=== PATIENT | female | born 1945 | race Caucasian/White ===

== ENCOUNTER 2023-09-03 14:02 | Outpatient (RCR) | payer OTHER, SELFPAY | END 2023-09-03 23:59 | disposition home or self-care (01) | LOC: RPT 14:02 | PROVIDERS: ATTENDING PHYSICIAN Family Medicine | DX: H81.13 Benign paroxysmal vertigo, bilateral (principal); R26.81 Unsteadiness on feet; Z73.6 Limitation of activities due to disability; R26.2 Difficulty in walking, not elsewhere classified; R26.89 Other abnormalities of gait and mobility; Z87.820 Personal history of traumatic brain injury | CPT/HCPCS: 97112; 97162 ==

== ENCOUNTER 2023-10-03 09:49 | Outpatient (RCR) | payer OTHER, SELFPAY | END 2023-10-03 23:59 | disposition home or self-care (01) | LOC: RPT 09:49 | PROVIDERS: ATTENDING PHYSICIAN Family Medicine | DX: S06.9X1D Unspecified intracranial injury with loss of consciousness of 30 minutes or less, subsequent encounter (principal); R26.81 Unsteadiness on feet; R26.89 Other abnormalities of gait and mobility; Z73.6 Limitation of activities due to disability; R47.02 Dysphasia; R41.841 Cognitive communication deficit | CPT/HCPCS: 92507; 92523; 97010; 97110; 97112; 97140; 97167; 97530 ==

== ENCOUNTER 2023-10-31 15:02 | Outpatient (RCR) | payer OTHER, SELFPAY | END 2023-10-31 23:59 | disposition home or self-care (01) | LOC: RPT 15:02 | PROVIDERS: ATTENDING PHYSICIAN Family Medicine | DX: S06.9X1D Unspecified intracranial injury with loss of consciousness of 30 minutes or less, subsequent encounter (principal); R26.81 Unsteadiness on feet; Z73.6 Limitation of activities due to disability; R26.2 Difficulty in walking, not elsewhere classified; H81.13 Benign paroxysmal vertigo, bilateral | CPT/HCPCS: 92507; 97110; 97112; 97140; 97530; 97535 ==

== ENCOUNTER 2023-12-02 10:59 | Outpatient (RCR) | payer OTHER, SELFPAY | END 2023-12-02 23:59 | disposition home or self-care (01) | LOC: RPT 10:59 | PROVIDERS: ATTENDING PHYSICIAN Family Medicine | DX: S06.9X1D Unspecified intracranial injury with loss of consciousness of 30 minutes or less, subsequent encounter (principal); R47.02 Dysphasia; R41.841 Cognitive communication deficit; G31.83 Neurocognitive disorder with Lewy bodies; F02.80 Dementia in other diseases classified elsewhere, unspecified severity, without behavioral disturbance, psychotic disturbance, mood disturbance, and anxiety | CPT/HCPCS: 92507; 97110; 97112; 97140; 97530 ==

== ENCOUNTER 2023-12-05 22:10 | Observation (INO) | payer OTHER, SELFPAY ==
[2023-12-05] VITALS (7 sets, daily range): BP systolic 125–157; BP diastolic 58–137
[2023-12-05 12:33] LABS: Urine Albumin Negative (Neg - Trace); Urine Bilirubin Negative (Negative); Urine Character Clear (Clear); Urine Color Yellow; Urine Glucose Negative (Negative); Urine Ketone Negative (Negative); Urine Leukocyte Negative (Negative); Urine Nitrite Negative (Negative); Urine Occult Blood Negative (Negative); Urine Urobilinogen Negative (Neg - 1+)
[2023-12-05] MEDS: NSS 1000 IV ×2 (13:35→20:49)
[2023-12-05 13:58] LABS: % Basophils 1.2 % (0-2); % Immature Granulocytes 0.2 % (0-0.5); % Lymphocytes 40.4 % (20.5-51.1); % Monocytes 7.8 % (1.7-9.3); % Neutrophils 49.4 % (42.2-75.2); Absolute Basophils 0.1 10^3/uL (0-0.2); Absolute Eosinophils 0.1 10^3/uL (0-0.7); Absolute Monocytes 0.4 10^3/uL (0.1-0.6); Absolute Neutrophils 2.4 10^3/uL (1.4-6.5); Hematocrit 40.9 % (37.0-47.0); Hemoglobin 14.1 g/dL (12.0-16.0); Mean Corp Hgb Conc. 34.5 g/dL (33.0-37.0); Mean Corpuscular Hgb 31.7 pg (27.0-31.0); Mean Corpuscular Volume 91.9 fL (81.0-99.0); Mean Platelet Volume 9.3 fL (7.4-10.4); Nucleated Red Blood Cells % 0 %; Platelet Count 224 10^3/uL (130-400); Red Blood Cell Count 4.45 10^6/uL (4.20-5.40); Red Cell Dist. Width 12.4 % (11.5-14.5); White Blood Cell Count 4.9 10^3/uL (4.8-10.8)
--- NOTE | 2023-12-05 14:06 | ED.GENMED ---
History of Present Illness
General
Chief Complaint: Abdominal Pain
Source: patient
Exam Limitations: none
Time Seen by Provider: 12/05/23 12:39
Nursing documentation reviewed up to this point in time: agreed with
Travel History
Have you had any contact with someone who has COVID-19?: No
Do you have any symptoms of coronavirus? Fever > 100 degrees, chills, cough, shortness of breath, sore throat, loss of taste or smell, muscle aches, or headache?: No
History of Present Illness
History of Present Illness:
Patient presents to ED secondary to persistent abdominal pain over the past 3 days, along with intermittent vomiting episodes. Denies diarrhea. Denies trauma. Denies fever or chills. Denies sick contact. Denies recent travel. Abdominal pain
described as crampy, lower abdomen, without any alleviating or exacerbating factors. Denies recent change in medications or diet
Past History
Past History
ED Past Medical History: GERD and Hypothyroidism
ED Past Surgical History: Gynecological and Orthopedic
Social History
Tobacco: Non-smoker
Alcohol: None
Drug: None
Living: with family
Review of Systems
Review of Systems
Allergies reviewed?: Yes
All Other Systems: ROS reviewed and negative except as documented in HPI and ROS
Constitutional: Reports no symptoms; Denies fever
Respiratory: Reports no symptoms
Cardiac: Reports no symptoms
ABD/GI: Reports abdominal pain, nausea and vomiting; Denies diarrhea
Musculoskeletal: Reports no symptoms
Skin: Reports no symptoms
Neurological: Reports no symptoms
Phy Exam
Physical Exam
Physical Exam:
Physical Exam
General: mild distress, not acutely ill. afebrile
Head: nc/at. eomi
Neck: supple. normal range of motion.
Heart: s1/s2 regular rate and rhythm, no murmur.
Lungs: no acute respiratory distress. clear bilaterally
Abdomen: normal bowel sounds. mild lower abdominal tenderness, L>R. no distention
Neuro: alert and oriented. no focal neurological deficits
Skin: no rash
Psychiatric: well kept. interactive and cooperative
Extremities: no edema. no calf tenderness.
Course
Orders/Labs/Results
Orders:
Orders
12/05/23 12:18
Urinalysis Reflex To Culture Urgent
Date Specimen was Collected: 12/05/23
Time Specimen was Collected: 12:15
12/05/23 12:56
0.9% Sodium Chloride 1000 ml [Nss] 1,000 ml IV BOLUS
12/05/23 12:58
CT Abd/pelvis W Iv Cont Urgent
Comment:
Reason For Exam: LLQ pain
CT Head W/o Iv Contrast Urgent
Comment:
Reason For Exam: slurred speech
12/05/23 13:31
Complete Blood Count/With Diff Urgent
Comprehensive Metabolic Panel Urgent
Magnesium Urgent
12/05/23 Dinner
NPO
Allow oral meds: Yes
Allow clear liquids: No
NPO with Ice Chips: No
12/05/23 20:15
0.9% Sodium Chloride 1000 ml [Nss] 1,000 ml IV 100 mls/hr
12/05/23 21:26
Lorazepam [Ativan] 0.5 mg IV NOW STA
12/05/23 21:55
Admit/Transfer Patient As Directed
Co-Sign Provider:
Level of Care: Observation services
Assign to:: Medical/Surgical
Physician / Group: souleymane burton
Diagnosis: consitpation, known gastric mass, urine retention
Code Status As Directed
Resuscitation Status: Do not resuscitate
Reached after discussion with pt or family/Healthcare POA: Yes
Based on pt advanced directive or healthcare POA form: Yes
Decision communicated with: Per daughter Belkis at bedside
Bisacodyl [Dulcolax] 10 mg RECTAL NOW STA
Bladder Scan As Directed
Follow Bladder Retention/Intermittent Cath Algorithm?: Yes
PRN if no void in __ hours: 6
Frequency: Per Retention Algorithm
If Bladder Scan Result >: 400
then:: Straight cath
Straight Cath As Directed
Frequency: Per Retention Algorithm
Additional Instructions: straight cath as needed per acute urinary retention algorithm for 24 hrs
Additional Instructions: for bladder scan greater than 400 mL
12/05/23 21:56
DNR Bracelet Application ONCE
12/05/23 22:10
GASTROINTESTINAL CONSULT Routine
Consulting Provider: Kyle Zelaya
Was physician already notified: Yes
Reason for consult: gastric antral mass
12/05/23 23:32
0.9% Sodium Chloride 1000 ml [Nss] 1,000 ml IV 80 mls/hr
Acetaminophen [Tylenol] 650 mg PO Q4HPRN PRN
12/05/23 23:32
Activity As Directed
Activity Level: With Assistance
Comment: Uses walker at baseline
Intake/ Output As Directed
Frequency: Per unit guidelines
Pneumatic Compression Sleeves As Directed
Type: Knee high
Vital Signs As Directed
Frequency: Per unit guidelines
Ot Eval And Treat Routine
Pt Eval And Treat Routine
Activity Level: As Tolerated
DX Deep Vein Thrombosis Video Routine
12/06/23 06:25
Basic Metabolic Panel IN AM
Complete Blood Count/With Diff IN AM
12/06/23 08:00
Bupropion(24Hr)Extended Releas [WELLBUTRIN XL (24 hour extended release)] 300 mg PO DAILY
Hydrochlorothiazide [Oretic] 12.5 mg PO DAILY
Rivastigmine [Exelon Patch] 9.5 mg TRANSDERM DAILY
methylphenidate HCl 18 mg PO DAILY
tafluprost (PF) 1 drop BOTH EYES DAILY
Abnormal Lab Results
12/05/23
13:31
MCH 31.7 H pg
(27.0-31.0)
Sodium 134 L mmol/L
(135-145)
Carbon Dioxide 32 H mmol/L
(22-30)
Glucose 100 H mg/dl
(70-99)
12/05/23 13:31
12/05/23 13:31
Vital Signs
Initial and Last Documented VS:
Initial Vital Signs
Temp Pulse Resp BP Pulse Ox
97.7 F 64 20 148/73 100
12/05/23 10:38 12/05/23 10:38 12/05/23 10:38 12/05/23 10:38 12/05/23 10:38
Last Documented Vital Signs
Temp Pulse Resp BP Pulse Ox
97.7 F 61 16 134/99 100
12/05/23 10:38 12/06/23 09:30 12/06/23 09:30 12/06/23 09:30 12/06/23 09:30
MDM/Problems Addressed
MDM/Problems Addressed:
CT report reviewed and discussed with Dr. Haddad, surgery. Recommends admission to hospital service for further evaluation eval and treatment, including GI consultation for endoscopy.
*Critical Care Note
Total Time (30-74mins, 75-104mins- exclusive of procedures): Not Applicable
ED Attending Note
-
Portions of this chart may have been created with voice recognition software.� Occasional wrong word or��sound alike� substitutions may have occurred due to the inherent limitations of voice recognition software.
Discharge Plan
Departure
Patient Disposition: Admit
Date of Disposition: 12/05/23
Time of Disposition: 20:06
Admit to: Med/Surg
Presentation/result/management discussed w/ accepting MD/DO: Hospitalist
Discharge Problem:
Abdominal pain, Abnormal CT of the abdomen
Interventions
Interventions:
*Risk Screen - Suicide Last Done: 12/06/23 09:47
*General Assessment Last Done: 12/05/23 12:23
*Neglect/Abuse Screening Last Done: 12/05/23 12:29
*ED COVID-19 Vaccine History Last Done: 12/05/23 10:38
*Nursing Disposition Last Done: 12/06/23 09:47
MY-Awezna-Qiclsifieo Assessment Last Done: 12/05/23 13:35
Discharge Date and Time
Discharge Date/Time: 12/06/23 09:47
[2023-12-05 14:11] LABS: ALT (SGPT) 20 U/L (0-35); AST (SGOT) 26 U/L (14-36); Albumin 4.4 g/dl (3.5-5.0); Alkaline Phosphatase 60 U/L (38-126); Blood Urea Nitrogen 10 mg/dl (7-17); Calcium 9.5 mg/dl (8.4-10.2); Carbon Dioxide 32 mmol/L (22-30); Chloride 99 mmol/L (98-107); Glucose 100 mg/dl (70-99); Magnesium 2.2 mg/dl (1.6-2.3); Potassium 3.5 mmol/L (3.5-5.1); Sodium 134 mmol/L (135-145); Total Bilirubin 0.6 mg/dl (0.2-1.3); Total Protein 6.8 g/dl (6.3-8.2); eGFR > 60.00
--- NOTE | 2023-12-05 21:10 | HPS.HSE ---
Addendum entered and electronically signed by Jose Mauricio DO 12/05/23 22:37:
Patient seen and examined independently. Agree with findings and plan as set forth by FERNANDO Garcia.
Patient is an 78y F with PMH significant for Lewy Body Dementia, hypertension and hypothyroidism who presents to ED complaining of abdominal pain with intermittent N/V. Symptoms have been present for the past 3 days - though daughter at the
bedside notes that this has been a more chronic / intermittent issue. Patient has had issues with constipation and urinary retention as well.
CT was done in the ED and ED staff recommended admission and GI evaluation.
Ass:
Abdominal Pain, N/V
Abnormal Abdominal CT (stable)
Chronic Constipation
Urinary Retention
Lewy Body Dementia with Behavioral Disturbance
TBI
Chronic Ambulatory Dysfunction
Hypothyroidism
Plan:
Observe overnight for further evaluation and treatment.
Reviewed prior CT imaging and noted abnormality in the stomach has been present as far back as June 2007 by report.
It is somewhat larger at present, but relative stability and presence of calcifications would suggest benign process over that time frame.
? related to her intermittent abdominal discomfort and N/V.
Supportive care.
GI eval in AM - ? EGD though daughter is reasonably hesitant about invasive procedures in this patient.
Bowel regimen and follow for effects.
Bladder scan protocol and catheter placement if needed.
Continue usual outpatient med regimen re: dementia / agitation.
Original Note:
Family Physician
-
Family Physician: Shobha Reyna
Chief Complaint
-
Abdominal pain, constipation, nausea
History of Present Illness
78-year-old female complaining of abdominal pain over the past 3 days with intermittent vomiting episodes. Her daughter states last bowel movement was approximately a few days ago. She normally takes prune juice but was not taking it. She also
reports for the last 2 weeks her balance has been worse than normal. She works with home PT after her fall in July resulting in brain hemorrhage, skull fracture, orbital fracture and her Lewy body dementia. She denies fever, chills, diarrhea,
antibiotics, recent travel, sick contacts, recent changes in medications or diet. She is past medical history of HTN, GERD, hypothyroidism, benign paroxysmal vertigo, dementia, left-sided breast cancer, meningioma, TBI July 2023 [facility] comminuted fracture right frontal bone right temporal bone, right frontal subdural hematoma that has resolved, scalp hematoma, chronic cystitis, renal calculi, arthritis unclear type, sleep apnea.
Medical History
Past Medical History
Past Medical History: Reports Other
Additional Past Medical History:
HTN
GERD
hypothyroidism
benign paroxysmal vertigo
dementia Lewy body dementia diagnosis 2022/ chronic agitation
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
Brain meningioma
TBI July 2023 [facility] comminuted fracture right frontal bone right temporal bone, right frontal subdural hematoma that has resolved, scalp hematoma
chronic cystitis/chronic urinary retention since July 2023,
renal calculi
arthritis unclear type
sleep apnea with implanted inspire device.
Chronic ambulatory dysfunction uses walker at baseline
Past Surgical History: Reports Other
Additional Past Surgical History:
section x 2
Tubal ligation
Appendectomy
Bilateral wrist surgery
Left-sided breast cancer surgery tubular ca removal
Inspire sleep apnea implant
Social History
Tobacco: Non-smoker
Alcohol: None
Drug: None
Personal: Single
Living: With Family (Daughter Belkis)
Employment: Retired
Family History
Family History: Other (Sister ovarian cancer, mother and father COPD/CHF in her 90s)
Allergies / Home Medications
Allergies reflects when Allergies were last updated in [facility].
Home Medications with original date entered in [facility]
Allergy/Medication List:
Allergies
Allergy/AdvReac Type Severity Reaction Status Date / Time
Penicillins Allergy Hives Verified 12/05/23 10:39
prednisone Allergy Hives Verified 12/05/23 10:39
Sulfa (Sulfonamide Allergy Hives Verified 12/05/23 10:39
Antibiotics)
Home Medications
bupropion HCl 300 mg 24 hr tablet, extended release (Wellbutrin XL) 300 mg PO DAILY 12/05/23
hydrochlorothiazide 12.5 mg tablet 12.5 mg PO DAILY 12/05/23
methylphenidate HCl 18 mg tablet,extended release 24 hr 18 mg PO DAILY 12/05/23
rivastigmine 9.5 mg/24 hour transdermal patch 9.5 mg transdermal DAILY 12/05/23
tafluprost (PF) 0.0015 % eye drops in a dropperette 1 drp BOTH EYES DAILY 12/05/23
Review of Systems
-
History Source: Patient and Family (Daughter Belkis at bedside)
A 12 point ROS was completed and negative except as noted: Yes
Constitutional: Denies Fever, Fatigue or Chills
EENT: Denies Sore Throat or Runny Nose
Respiratory: Denies Cough or Trouble Breathing
Cardiac: Denies Chest Pain, Diaphoresis or Palpitations
Abdomen/GI: Reports Abdominal Pain, Nausea, Vomiting and Constipated; Denies Diarrhea, Bloody Stools or Black Stools
: Reports Difficulty Voiding (Chronic); Denies Dysuria, Frequency, Flank Pain or Incontinence
Musculoskeletal: Denies Joint Pain or Edema
Skin: Denies Itching or Rash
Neurological: Reports Headache (Chronic); Denies Dizzy
Endocrine: Reports No Symptoms
Hematologic/Lymphatic: Reports No Symptoms
Psych: Reports Calm
Physical Exam
Vital Signs
Vital Signs
Temp Pulse Resp BP Pulse Ox
97.7 F 58 20 157/137 95
12/05/23 10:38 12/05/23 14:24 12/05/23 10:38 12/05/23 19:00 12/05/23 19:15
Physical Exam
HEENT: Other (Agitated history of Lewy body dementia currently oriented to name and some of history but not daughter Belkis at bedside)
Respiratory: Clear; No Wheezes or Rales
Cardiac: S1/S2 and Regular Rhythm; No Murmur, Rub, Gallop or Peripheral Edema
Breast: Deferred by me
GI: Soft, Non Distended, Normal Bowel Sounds, Tender (Slight generalized, and suprapubic) and No Hepatosplenomegaly
Rectal: Deferred by Provider
Genito-urinary: Deferred by me
Musculoskeletal: No Clubbing, No Cyanosis and No Edema
Skin: Warm and Dry; No Rash
Neuro: Awake, Alert and Oriented (To name and some of history but not daughter, place, year)
Psych: Agitated
Laboratory Results
-
12/05/23 13:31
12/05/23 13:31
Laboratory Results
Total Bilirubin 0.6 mg/dl (0.2-1.3) 12/05/23 13:31
AST 26 U/L (14-36) 12/05/23 13:31
ALT 20 U/L (0-35) 12/05/23 13:31
Alkaline Phosphatase 60 U/L (38-126) 12/05/23 13:31
Data Reviewed
-
CT Scan: Report Reviewed by me
Lab Data: Labs Reviewed by me
Impression/Plan
-
Impression/plan:
observation MedSurg
#Abdominal pain with possible luminal mass in gastrum abd pain likely 2/2 to constipation
#Mass was present on prior CT since 2019 in retrospect was present in 2007 but is larger
-Case was discussed with Dr. Haddad and deferred to GI
-Consult GI for possible Endo
-n.p.o. except meds
-IV NSS
-IV Zofran prn
CT abdomen pelvis with IV contrast:
1. 3.9 x 2.9 cm low-attenuation mass superimposed on the gastric body there is a metallic density focus
2.Minor sigmoid diverticulosis without diverticulitis
3. Constipation with mild to moderate colonic fecal burden
4. Distended urinary bladder consider Majano cath placement if unable to void
5. Central uterine mass measuring 5.6 cm consistent with fibroid
CT head: No acute intracranial abnormality
#Constipation with mild to moderate colonic fecal burden/history of constipation
-Daughter reports normally gets her prune juice
-Dulcolax suppository this evening
-Monitor and record bowel movements
#Distended urinary bladder on CT/history urinary retention since TBI July 2023
#Chronic cystitis
#Renal calculi
-Bladder scan with protocol
-UA negative
#Sleep apnea with implanted inspire device implanted
#GERD
#Diverticulosis/diverticulitis Hx
#HTN�benign
153/137 patient currently agitated given IV Ativan in ER we will continue to monitor
-Continue HCTZ 0.5 mg daily
#Dementia Lewy body with sundowning/agitation
Continue rivastigmine, methylphenidate, Wellbutrin daughter reports all meds must be given at 8 AM
#Hx of known meningioma
#TBI after fall 2023 with orbital and skull fracture treated at [facility] July 20[address] scan August 2023 here at [facility] comminuted fracture right frontal bone right temporal bone, right frontal subdural hematoma that has resolved, scalp hematoma
#Chronic headaches with vertigo sensation
-Tylenol as needed
#Chronic ambulatory dysfunction
Has home PT
#Hypothyroidism hx
-No current meds
Check TSH with free T4 reflex
#Arthritis unclear type
#Left-sided breast tubular cancer with removal of mass approximate 15 years ago
DVT prophylaxis
SCDs
DNR per daughter Belkis at bedside
[2023-12-05] MEDS: ATIVAN 0.5 MG IV (21:28)
[2023-12-05] MEDS: DULCOLAX 10 MG RECTAL (22:45)
[2023-12-06] VITALS: BP 145/66
[2023-12-06 01:00] VITALS: BP 141/78
[2023-12-06] MEDS: NSS 1000 IV (01:58)
[2023-12-06 03:00] VITALS: BP 133/74
[2023-12-06 06:42] LABS: % Basophils 1.6 % (0-2); % Eosinophils 1.6 % (0-6); % Immature Granulocytes 0.3 % (0-0.5); % Lymphocytes 36.4 % (20.5-51.1); % Monocytes 9.2 % (1.7-9.3); % Neutrophils 50.9 % (42.2-75.2); Absolute Basophils 0.1 10^3/uL (0-0.2); Absolute Eosinophils 0.1 10^3/uL (0-0.7); Absolute Lymphocytes 1.3 10^3/uL (1.2-3.4); Absolute Monocytes 0.3 10^3/uL (0.1-0.6); Absolute Neutrophils 1.9 10^3/uL (1.4-6.5); Hematocrit 37.4 % (37.0-47.0); Hemoglobin 12.9 g/dL (12.0-16.0); Mean Corp Hgb Conc. 34.5 g/dL (33.0-37.0); Mean Corpuscular Hgb 31.6 pg (27.0-31.0); Mean Corpuscular Volume 91.7 fL (81.0-99.0); Mean Platelet Volume 9.2 fL (7.4-10.4); Nucleated Red Blood Cells % 0 %; Platelet Count 189 10^3/uL (130-400); Red Blood Cell Count 4.08 10^6/uL (4.20-5.40); Red Cell Dist. Width 12.5 % (11.5-14.5); White Blood Cell Count 3.7 10^3/uL (4.8-10.8)
[2023-12-06 07:14] LABS: Blood Urea Nitrogen 8 mg/dl (7-17); Calcium 8.8 mg/dl (8.4-10.2); Carbon Dioxide 27 mmol/L (22-30); Chloride 104 mmol/L (98-107); Estimated Creatinine Clearance 62 ml/min; Glucose 91 mg/dl (70-99); Potassium 3.6 mmol/L (3.5-5.1); Sodium 137 mmol/L (135-145); eGFR > 60.00
[2023-12-06] MEDS: EXELON PATCH 9.5 MG TRANSDERM (08:42)
[2023-12-06] MEDS: ORETIC 12.5 MG PO (08:42)
[2023-12-06] MEDS: WELLBUTRIN XL (24 hour extended release) 300 MG PO (08:43)
--- NOTE | 2023-12-06 09:13 | CM ---
CM was updated that patient's daughter is requesting discharge. CM met with daughter to provide with OBS letter. Patient's daughter was upset with observation status. CM explained observation status in detail.CM stated that daughter can call Patient
Financial Services with further questions or concerns.
Daughter stated that she is refusing to sign observation letter. CM provided copy for patient's daughter which she did accept.
[2023-12-06 09:30] VITALS: BP 134/99
--- NOTE | 2023-12-06 09:43 | CON.GS ---
Addendum entered and electronically signed by Esdras Haddad MD 12/06/23 10:08:
I saw and examined the patient independently.
The Transfer Station Attendant's note was reviewed and I agree with the note, assessment and plan except where noted below.
Comment: This is an 78-year-old female with an Lewy body dementia, TBI, breast cancer and known gastric mass that has never previously been biopsied who presents with nausea and what sounds like nonbloody nonbilious emesis found to have a gastric
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 Had a lengthy discussion with both patient and her daughter. They are unclear in terms of how aggressive
they would like to be in terms of treating this given her other medical comorbidities.
No acute general surgery intervention warranted. No surgical admission warranted either.
If they do wish to pursue treatment here she would need an EGD and EUS +/-FNA biopsy which can be done as an outpatient.
She can follow up with me as an outpatient. Given its location on the stomach and pending final pathology would likely be a candidate for a laparoscopic wedge gastrectomy.
In the meantime would focus on a mostly liquid diet and small frequent meals instead of larger meals given that she has an intraluminal partial obstruction.
All questions answered.
Original Note:
Medical History
-
Chief Complaint: weakness
History of Present Illness:
This is an 78 yo female with a history of Lewey body dementia, TBI, and breast ca presenting through the ED with ongoing weakness and one episode of vomiting last week after a large meal. She is seen today in evaluation with her daughter. She denies
active nausea or recurrent issues with vomiting. She denies abdominal pain. She does struggle with constipation chronically. CT imaging with finding of mass within the gastric body which has slowly increased in size since scans dating back to 2006.
Her daughter notes that remotely, she has followed with gastroenterology with prior EGD but it was many years ago.
Past Medical History
Past Medical History: Cancer (breast), GERD, HTN, Hypothyroidism and Other (Sleep apnea with inspire implant, TBI July 2023 [facility] comminuted fracture right frontal bone right temporal bone, right frontal subdural hematoma, Brain
menigioma, Vertigo)
Past Surgical History: Appendectomy, (x2), Gynecological (tubal ligation), Orthopedic (BL wrist) and Other (Left breast surgery)
Social History
Tobacco: Non-Smoker
Alcohol: None
Living: With Family
Family History
Family History: Reviewed & Not Pertinent
Allergies / Home Medications
Allergy/AdvReac Type Severity Reaction Status Date / Time
Penicillins Allergy Hives Verified 12/05/23 10:39
prednisone Allergy Hives Verified 12/05/23 10:39
Sulfa (Sulfonamide Allergy Hives Verified 12/05/23 10:39
Antibiotics)
�Medication �Instructions �Recorded �Confirmed �Type
bupropion HCl 300 mg 24 hr tablet, 300 mg PO DAILY 12/05/23 12/05/23 History
extended release (Wellbutrin XL)
hydrochlorothiazide 12.5 mg tablet 12.5 mg PO DAILY 12/05/23 12/05/23 History
methylphenidate HCl 18 mg 18 mg PO DAILY 12/05/23 12/05/23 History
tablet,extended release 24 hr
rivastigmine 9.5 mg/24 hour 9.5 mg transdermal DAILY 12/05/23 12/05/23 History
transdermal patch
tafluprost (PF) 0.0015 % eye drops 1 drp BOTH EYES DAILY 12/05/23 12/05/23 History
in a dropperette
Review of Systems
-
Unable to obtain full review of systems at this time due to: Dementia
History Source: Patient and Family
All other systems: Negative unless noted
A 10 point review of systems was completed, and was negative except as per HPI.
Physical Exam
Vital Signs
Temp Pulse Resp BP Pulse Ox
97.7 F 58 20 133/74 94
12/05/23 10:38 12/05/23 14:24 12/05/23 10:38 12/06/23 03:00 12/05/23 20:43
12/05/23 12/06/23 12/07/23
06:59 06:59 06:59
Actual Weight 59.5 kg
Lab Results
12/06/23 06:25
12/06/23 06:25
WBC 3.7 10^3/uL (4.8-10.8) L 12/06/23 06:25
Hgb 12.9 g/dL (12.0-16.0) 12/06/23 06:25
Hct 37.4 % (37.0-47.0) 12/06/23 06:25
Plt Count 189 10^3/uL (130-400) 12/06/23 06:25
Abs Immat Gran (auto) 0.0 10^3/uL (0-0.05) 12/06/23 06:25
Neutrophils % 50.9 % (42.2-75.2) 12/06/23 06:25
Physical Exam
General: Well Developed and No Apparent Distress
HEENT: Moist Mucous Membranes
Respiratory: Non Labored Respirations
GI: Soft, Non Tender and Non Distended
Skin: Warm and Dry
Neuro: Awake, Alert and AO x 3
Psych: Calm
Data Reviewed
-
CT Scan: Image Personally Visualized and interpreted, Report Reviewed by me, Discussed with Physician, Discussed with Nurse, Discussed with Patient and Discussed with Family
Labs: Labs Reviewed by me, Discussed with Physician, Discussed with Nurse, Discussed with Patient and Discussed with Family
Old Records: Reviewed
Assessment / Plan
-
78 yo female with h/o Lewey body dementia, TBI in 07/2023 presenting with left sided weakness and one episode of vomiting a week ago. She currently denies GI complaints. CT imaging with finding of nonobstructing mass within the gastric body which
has slowly increased in size since scans dating back to 2006. No recent EGD's. Given her neurological problems and difficulty with anesthesia, family is reasonably unsure how much work up they would like to pursue at this time. No active n/v.
Tolerating PO intake for the most part.
--discussed outpatient follow up with GI for EGD/EUS if patient family decide to pursue further work up
--pending findings, can follow with surgery for partial gastrectomy if warranted in the future
--No acute surgical intervention warranted
Surgery to follow peripherally, please call with questions/concerns
--- NOTE | 2023-12-06 09:57 | CON.GI ---
Addendum entered and electronically signed by Madonna Bentley DO 12/06/23 10:57:
I saw and examined the patient.
The FOWL BLOOD TESTER or PA's note was reviewed and I agree with the note.
Comment: Discussed CT findings at length with patient and daughter at bedside. 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 Additionally, large fibroid and stool burden present, chronic constipation.
Ultimately, would need EGD/EUS to further evaluate gastric mass, daughter would like to discuss further with PCP, neurologist and palliative care, which is certainly appropriate given this would only provide diagnostic objective information,
definitive treatment would be surgical, and may not be necessary or in line with their treatment goals. Discussed a daily bowel regimen and dietary modifications at length. She prefers to take her mother home today and follow-up as an outpatient,
card provided. Offered to make an appointment for her but she prefers to do this on her own.
Original Note:
Consultation
-
Date/Time Consultation Requested: 12/05/23 @22:10
Date/Time Consultation Performed: 12/06/23 @ 09:30
Requesting Provider: FERNANDO Garcia
Performing Provider: FERNANDO Meléndez; Dr. Madonna Bentley
Reason for Consultation: gastric antral mass
Medical History
Chief Complaint / HPI
Chief Complaint: abdominal pain, nausea, constipation
History of Present Illness:
The patient is an 78-year-old female with a past medical history significant for Lewy body dementia, chronic constipation, GERD, hypertension, hypothyroidism, left-sided breast cancer, TBI at [facility] in July 2023 with frontal bone and temporal
bone fracture with subdural hematoma, chronic urinary retention, sleep apnea, chronic ambulatory dysfunction, who presented to the emergency room with complaints of nausea, abdominal pain, and constipation. We are being asked to evaluate for the
presenting symptoms along with findings of a stomach mass. Upon review of prior records, she has noted Dr. Dominguez historically, seen in the office in 2019 for evaluation of abdominal pain. She had a CT scan at that time showing a gastric mass,
although this was prevalent since 2006. She was advised to undergo EGD in which the mass was seen but appeared to be submucosal likely benign. Biopsies at that time were not done and she was advised on undergoing an endoscopic ultrasound. She
also underwent a colonoscopy at that time which showed diverticulosis otherwise was normal. The patient is unable to give history due to her dementia but her daughter is at the bedside. She reports that she has had this mass for many years. She
did not undergo endoscopic ultrasound last time as she has been doing well. She notes that she deals with chronic constipation and typically is managed with prune juice and diet. She notes that her mother prefers homeopathic medicine and likes to
do things that are more natural. She notes that her mother does often obsess over her bowels at times and she makes notes to pay attention to her bowel habits so that she can adjust her diet as needed. She notes that she will intermittently refuse
medications but she does use Metamucil very regularly. Will have stomach explosive diarrhea at time as well. She notes that she has been having ongoing belching symptoms but does not take anything regularly for acid reflux as she was concern for
side effects. She reportedly had vomiting prior to admission but is having no further symptoms. She does admit to some discomfort in her abdomen but no significant pain currently. It is unclear if she is losing weight but it was not reported at
the time of evaluation. She does note she has had problems with her balance, with a notable fall in July with subdural hematoma and frontal and temporal bone fracture. She is not on blood thinners. Her daughter notes that she is followed by
neurology and palliative care outpatient. She also follows closely with her PCP due to her ongoing chronic balance and memory problems. Notable labs on admission include sodium 134, potassium 3.5, BUN 10, creatinine 0.6, otherwise essentially
normal. CT of the abdomen and pelvis was obtained showing by 2.9 cm low-attenuation mass superimposing the gastric body, mild to moderate colonic fecal burden, and other nonurgent findings as noted below. CT of the head was also obtained which
showed no acute intracranial abnormalities. She was made n.p.o., admitted for further evaluation by GI. Currently she is feeling improved and awaiting possible discharge with her daughter at the bedside. She was seen by general surgery as well
who did not recommend any surgical intervention at this time. She was advised on mostly liquid diet and small frequent meals.
Past Medical History
Past Medical History: Cancer (Breast cancer), GERD, HTN, Hypercholesterolemia, Hypothyroidism and Other (Lewy body dementia, TBI, chronic constipation, sleep apnea, chronic ambulatory dysfunction, chronic urinary retention, osteoporosis, glaucoma)
Past Surgical History: Appendectomy, and Other (bilateral carpal tunnel release, tubal ligation, left breast lumpectomy 2013, D&C)
Social History
Tobacco: Non-Smoker
Alcohol: None
Drug: None
Family History
Family History: Reviewed & Not Pertinent
Allergies / Home Medications
Allergy/AdvReac Type Severity Reaction Status Date / Time
Penicillins Allergy Hives Verified 12/05/23 10:39
prednisone Allergy Hives Verified 12/05/23 10:39
Sulfa (Sulfonamide Allergy Hives Verified 12/05/23 10:39
Antibiotics)
�Medication �Instructions �Recorded
bupropion HCl 300 mg 24 hr tablet, 300 mg PO DAILY 12/05/23
extended release (Wellbutrin XL)
hydrochlorothiazide 12.5 mg tablet 12.5 mg PO DAILY 12/05/23
methylphenidate HCl 18 mg 18 mg PO DAILY 12/05/23
tablet,extended release 24 hr
rivastigmine 9.5 mg/24 hour 9.5 mg transdermal DAILY 12/05/23
transdermal patch
tafluprost (PF) 0.0015 % eye drops 1 drp BOTH EYES DAILY 12/05/23
in a dropperette
Review of Systems
-
Unable to obtain full review of systems at this time due to: Dementia
Vital Signs
Temp Pulse Resp BP Pulse Ox
97.7 F 58 20 133/74 94
12/05/23 10:38 12/05/23 14:24 12/05/23 10:38 12/06/23 03:00 12/05/23 20:43
Physical Exam
Exam
General: Well Developed, Well Nourished, No Apparent Distress and Comfortable
HEENT: Normocephalic, Anicteric and Atraumatic
Respiratory: Clear
Cardiac: S1/S2 and Regular Rhythm
Breast: Deferred by me
GI: Soft, Non Tender, Non Distended and Normal Bowel Sounds
Rectal: Deferred by Provider
Neuro: Awake and Alert
Psych: Calm
Results
WBC 3.7 10^3/uL (4.8-10.8) L 12/06/23 06:25
Hgb 12.9 g/dL (12.0-16.0) 12/06/23 06:25
Hct 37.4 % (37.0-47.0) 12/06/23 06:25
MCV 91.7 fL (81.0-99.0) 12/06/23 06:25
Plt Count 189 10^3/uL (130-400) 12/06/23 06:25
Absolute Neuts (auto) 1.9 10^3/uL (1.4-6.5) 12/06/23 06:25
Sodium 137 mmol/L (135-145) 12/06/23 06:25
Potassium 3.6 mmol/L (3.5-5.1) 12/06/23 06:25
Chloride 104 mmol/L (98-107) 12/06/23 06:25
Carbon Dioxide 27 mmol/L (22-30) 12/06/23 06:25
BUN 8 mg/dl (7-17) 12/06/23 06:25
Creatinine 0.6 mg/dL (0.6-1.0) 12/06/23 06:25
Calcium 8.8 mg/dl (8.4-10.2) 12/06/23 06:25
Total Bilirubin 0.6 mg/dl (0.2-1.3) 12/05/23 13:31
AST 26 U/L (14-36) 12/05/23 13:31
ALT 20 U/L (0-35) 12/05/23 13:31
Alkaline Phosphatase 60 U/L (38-126) 12/05/23 13:31
Diagnostic Image Results:
12/05/2023 CT head: No acute intracranial abnormality
12/05/2023 CT abdomen pelvis with IV contrast: 'Constipation mild to moderate with colonic fecal burden, minor sigmoid diverticulosis without acute diverticulitis, 3.9 x 2.9 cm low-attenuation mass superimposed to the gastric body. Central uterine
mass measuring 5.6 cm consistent with fibroid. Distended urinary bladder. No ascites or free air. No significant secondary signs of appendicitis. No bowel obstruction. No obstructive uropathy.'
Prior GI Procedures:
EGD: 06/01/2019, Dr. Dominguez: Normal esophagus. Z-line irregular, 37 cm from the incisors. Normal mucosa was found in the entire stomach. Biopsied. Likely benign gastric submucosal growth in the gastric fundus and on the greater curvature of the
stomach. Normal examined duodenum. Biopsied. Pathology negative for celiac, H. pylori, intestinal metaplasia of the antrum, or Nielson's esophagus.
Colonoscopy: 06/01/2019, Dr. Dominguez: Mild diverticulosis in the sigmoid colon and in the descending colon.
Assessment / Plan
-
The patient is an 78-year-old female with a past medical history significant for Lewy body dementia, chronic constipation, GERD, hypertension, hypothyroidism, left-sided breast cancer, TBI at [facility] in July 2023 with frontal bone and temporal
bone fracture with subdural hematoma, chronic urinary retention, sleep apnea, chronic ambulatory dysfunction, who presented to the emergency room with complaints of nausea, abdominal pain, and constipation, found to have findings on CT imaging
consistent with known previous stomach mass that has appeared to be somewhat larger in size with no obvious signs of bowel obstruction. Also with mild to moderate fecal burden suggesting constipation. Currently nausea/vomiting has resolved. Her
daughter is at the bedside and discussed in depth regarding her history notable for chronic constipation which she has been managing homeopathically with natural remedies including prune juice and fiber diet along with Metamucil. Also with
longstanding history of a stomach mass since 2006 with intermittent symptoms of nausea and dyspepsia, now with belching and vomiting which has improved.
Problem list:
-Nausea, vomiting, resolved
-Chronic constipation
-CT findings consistent with known gastric mass, increased in size dating back to 2006, GIST v other benign etiology given chronicity
-CT findings showing distended urinary bladder with history of chronic urinary retention
Other pertinent medical history:
-History of diverticulosis
-Chronic GERD
-History of Lewy body dementia
-Sleep apnea
-Hypertension
-Ambulatory dysfunction with falls with history of TBI/subdural hematoma in 2022
-Hypothyroidism
-Arthritis
-Left-sided breast cancer status post lumpectomy in 2012
Recommendations:
-Etiology of symptoms possibly secondary to known gastric mass, suggesting GIST versus other benign etiology versus constipation versus other.
-Myself and Dr. Bentley did have a conversation with the daughter at the bedside discussing etiology, risk versus benefits of procedures such as endoscopic ultrasound, and other management. As her mother is improved symptomatically, she would like
to discuss this with her outpatient medical care team including her mother's neurologist, palliative care doctor, and PCP to determine treatment going forward. To consider EUS/EGD outpatient if she determines she would like to proceed with biopsy.
We did provide our card for reference if she wishes to proceed with this.
-Advised on smaller more frequent meals along with softer food options which may help with her symptoms
-Advised on use of magnesium supplement to help with bowel movements which will help with stimulation. Can start with 1 to 2 tablets of magnesium citrate 125 mg to 250 mg daily at night and adjust based on her stools
-Advised caution on overuse of fiber in the diet as this can exacerbate upper GI symptoms
-Can use [id number] Pepcid to assist with upper GI symptoms of belching and nausea
-No further inpatient GI recs at this time as long as she is tolerating diet she can be discharged with outpatient follow-up as needed if she wishes to proceed with biopsy
-No further GI recommendations at this time. Please call back with questions or concerns.
Data Reviewed
-
CT Scan: Report Reviewed by me and Discussed with Physician
Old Records: Reviewed
-
-
Thank you for consultation and allowing me to participate in the patient's care. Please call the technical implementation lead GI physician during the after hours with any questions or concerns.
--- NOTE | 2023-12-06 12:01 | W.PN.UPDATE ---
Update Note
Progress Note Update
The patient left AMA (without signing the form) before I ever met/saw her for the first time.
== END 2023-12-06 13:00 | disposition home or self-care (01) ==
LOC: ED 22:10
PROVIDERS: Clinical Nurse Specialist Family Health; Emergency Medicine; ADMITTING PHYSICIAN Hospitalist; ATTENDING PHYSICIAN Internal Medicine; EMERGENCY PHYSICIAN Emergency Medicine; FAMILY PHYSICIAN Family Medicine; OTHER PHYSICIAN Internal Medicine; OTHER PHYSICIAN Surgery
DX: R10.32 Left lower quadrant pain (principal); R11.2 Nausea with vomiting, unspecified; K59.09 Other constipation; R33.9 Retention of urine, unspecified; K57.30 Diverticulosis of large intestine without perforation or abscess without bleeding; K31.9 Disease of stomach and duodenum, unspecified; N30.20 Other chronic cystitis without hematuria; N20.0 Calculus of kidney; K21.9 Gastro-esophageal reflux disease without esophagitis; E03.9 Hypothyroidism, unspecified; R47.81 Slurred speech; G31.83 Neurocognitive disorder with Lewy bodies; F02.811 Dementia in other diseases classified elsewhere, unspecified severity, with agitation; I10 Essential (primary) hypertension; R26.2 Difficulty in walking, not elsewhere classified; M19.90 Unspecified osteoarthritis, unspecified site; G47.30 Sleep apnea, unspecified; R51.9 Headache, unspecified; R42 Dizziness and giddiness; Z66 Do not resuscitate; Z82.49 Family history of ischemic heart disease and other diseases of the circulatory system; Z80.41 Family history of malignant neoplasm of ovary; Z83.6 Family history of other diseases of the respiratory system; Z87.442 Personal history of urinary calculi; Z87.820 Personal history of traumatic brain injury; Z85.3 Personal history of malignant neoplasm of breast; Z88.0 Allergy status to penicillin; Z88.2 Allergy status to sulfonamides; Z88.8 Allergy status to other drugs, medicaments and biological substances
CPT/HCPCS: 70450; 74177; 80048; 80053; 81003; 83735; 85025; 96374; 99285; G0378; Q9967

== ENCOUNTER 2024-01-01 09:55 | Outpatient (RCR) | payer OTHER, SELFPAY | END 2024-01-01 23:59 | disposition home or self-care (01) | LOC: RPT 09:55 | PROVIDERS: ATTENDING PHYSICIAN Family Medicine | DX: H81.13 Benign paroxysmal vertigo, bilateral (principal); R26.81 Unsteadiness on feet; Z73.6 Limitation of activities due to disability | CPT/HCPCS: 97110; 97112; 97140; 97530 ==

== ENCOUNTER 2024-01-30 09:56 | Outpatient (RCR) | payer OTHER, SELFPAY | END 2024-01-30 23:59 | disposition home or self-care (01) | LOC: RPT 09:56 | PROVIDERS: ATTENDING PHYSICIAN Family Medicine | DX: H81.13 Benign paroxysmal vertigo, bilateral (principal); R26.81 Unsteadiness on feet; Z73.6 Limitation of activities due to disability; R26.2 Difficulty in walking, not elsewhere classified; R51.9 Headache, unspecified; R53.83 Other fatigue; R26.89 Other abnormalities of gait and mobility | CPT/HCPCS: 97110; 97112; 97140; 97530 ==

== ENCOUNTER 2024-02-25 09:48 | Outpatient (RCR) | payer OTHER, SELFPAY | END 2024-02-25 23:59 | disposition home or self-care (01) | LOC: RPT 09:48 | PROVIDERS: ATTENDING PHYSICIAN Family Medicine | DX: H81.13 Benign paroxysmal vertigo, bilateral (principal); R26.81 Unsteadiness on feet | CPT/HCPCS: 97110; 97112; 97530 ==

== ENCOUNTER 2024-03-10 09:48 | Outpatient (RCR) | payer OTHER, SELFPAY | END 2024-03-12 13:12 | disposition home or self-care (01) | LOC: RPT 09:48 | PROVIDERS: ATTENDING PHYSICIAN Family Medicine | DX: H81.10 Benign paroxysmal vertigo, unspecified ear (principal); R26.81 Unsteadiness on feet | CPT/HCPCS: 97110; 97112; 97140 ==

== ENCOUNTER → 2024-09-21 09:34 | Outpatient (REF) | payer OTHER, SELFPAY | LOC: RAD 09:34 | PROVIDERS: ATTENDING PHYSICIAN Internal Medicine; FAMILY PHYSICIAN Family Medicine | DX: M81.0 Age-related osteoporosis without current pathological fracture (principal) | CPT/HCPCS: 77080 ==

== ENCOUNTER → 2025-01-20 08:30 | Outpatient (REF) | payer OTHER, SELFPAY | LOC: RST 08:30 | PROVIDERS: ATTENDING PHYSICIAN Nurse Practitioner Family; FAMILY PHYSICIAN Family Medicine | DX: G31.83 Neurocognitive disorder with Lewy bodies (principal); F02.80 Dementia in other diseases classified elsewhere, unspecified severity, without behavioral disturbance, psychotic disturbance, mood disturbance, and anxiety; R09.89 Other specified symptoms and signs involving the circulatory and respiratory systems | CPT/HCPCS: 74230; 92611 ==

== ENCOUNTER → 2025-04-19 10:42 | Emergency (ER) | payer OTHER, SELFPAY ==
[2025-04-19 10:52] VITALS: BP 121/53
[2025-04-19 11:14] LABS: Hematocrit 38.3 % (37.0-47.0); Hemoglobin 12.9 g/dL (12.0-16.0); Mean Corp Hgb Conc. 33.7 g/dL (33.0-37.0); Mean Corpuscular Volume 93.4 fL (81.0-99.0); Nucleated Red Blood Cells % 0 %; Platelet Count 185 10^3/uL (130-400); Red Cell Dist. Width 12.9 % (11.5-14.5)
[2025-04-19 11:30] LABS: ALT (SGPT) 26 U/L (0-35); AST (SGOT) 37 U/L (14-36); Albumin 4.1 g/dl (3.5-5.0); Alkaline Phosphatase 60 U/L (38-126); Blood Urea Nitrogen 17 mg/dl (7-17); Calcium 9.2 mg/dl (8.4-10.2); Carbon Dioxide 33 mmol/L (22-30); Chloride 102 mmol/L (98-107); Estimated Creatinine Clearance 47 ml/min; Glucose 110 mg/dl (70-99); Potassium 3.7 mmol/L (3.5-5.1); Sodium 138 mmol/L (135-145); Total Protein 6.6 g/dl (6.3-8.2); eGFR > 60.00
--- NOTE | 2025-04-19 11:43 | ED.GENMED ---
History of Present Illness
General
Chief Complaint: Fall
Source: patient and family ([facility] at bedside)
Exam Limitations: dementia
Time Seen by Provider: 04/19/25 10:48
History of Present Illness
History of Present Illness:
80 yo female with Lewy Body dementia was outside her home walking with her daughter, as she started to go up her ramp, she tripped over the ledge, fell sideways, striking face on pavement, injuring upper front teeth, upper lip, lower lip, both
palms, and nose. Has had Tdap within past 5 years. Not anticoagulated, No LOC. Daughter witness, got her sitting up. Pt with dementia and is poor historian.
Past History
Past History
ED Past Medical History: GERD and Hypothyroidism
ED Past Surgical History: Gynecological and Orthopedic
Social History
Tobacco: Non-smoker
Alcohol: None
Drug: None
Personal: Single
Living: with family
Review of Systems
Review of Systems
Allergies reviewed?: Yes
Unable to obtain full review of systems at this time due to: dementia
Other source history: family
All Other Systems: ROS reviewed and negative except as documented in HPI and ROS
Musculoskeletal: Reports neck pain; Denies edema
Skin: Reports other (multiple abrasions, nose, both palms, both knees, lips)
Phy Exam
Physical Exam
Physical Exam:
GENERAL: No acute distress. Alert, demented, poor historian
CONSTITUTIONAL: Afebrile.
EYES: clear, conjunctivae normal, PERRL, no periorbital tenderness, swelling or bruising, skin intact.
ENMT: moist mucus membranes, Pharynx nl, tip of nose with deep clean abrasion, mild swelling. Nasal passages clear. Two front upper incisors with mild swelling and dried blood, appear to be pushed in a little. Tender to palpate but not loose.
Full ROM of jaw, no TMJ tenderness.
RESPIRATORY: Regular respirations, nonlabored, lungs clear.
CARDIOVASCULAR: Regular rate and rhythm, no murmurs, no rubs.
GI: Soft, nontender, normal BS
MUSCULOSKELETAL: Winces with palpation mid cervical spine right side soft tissues, no bony tenderness. Rest of spine elicits no sign of discomfort. Moving all extremities well, no significant bony tenderness. Moves with ease. Well perfused.
SKIN: Warm, dry, pink. Deep clean abrasions tip of nose, inner upper lip, lower lip, both palms, both knees.
PSYCH: Normal mood and affect. Well kept, interactive, dementia
NEUROLOGIC: Awake, alert and oriented. No focal neurological deficits. Strength equal throughout.
Course
Orders/Labs/Results
Orders:
Orders
04/19/25 11:06
Complete Blood Count/With Diff Urgent
Comprehensive Metabolic Panel Urgent
04/19/25 11:28
CT Facial Bones W/o Iv Contras Urgent
Comment:
Reason For Exam: nose injury, fall, dementia, face plant
CT Head W/o Iv Contrast Urgent
Comment:
Reason For Exam: fall, face planted, dementia
04/19/25 11:29
CT Cervical Spine W/o Iv Contr Urgent
Comment:
Reason For Exam: dementia, fall, facial injuries
Abnormal Lab Results
04/19/25
11:06
RBC 4.10 L 10^6/uL
(4.20-5.40)
MCH 31.5 H pg
(27.0-31.0)
Carbon Dioxide 33 H mmol/L
(22-30)
Glucose 110 H mg/dl
(70-99)
AST 37 H U/L
(14-36)
04/19/25 11:06
04/19/25 11:06
Vital Signs
Initial and Last Documented VS:
Initial Vital Signs
Temp Pulse Resp BP Pulse Ox
97.7 F 62 16 121/53 97
04/19/25 10:52 04/19/25 10:52 04/19/25 10:52 04/19/25 10:52 04/19/25 10:52
Last Documented Vital Signs
Temp Pulse Resp BP Pulse Ox
97.7 F 62 16 121/53 97
04/19/25 10:52 04/19/25 10:52 04/19/25 10:52 04/19/25 10:52 04/19/25 11:53
MDM/Problems Addressed
MDM/Problems Addressed:
80 yo female with Lewy Body dementia was outside her home walking with her daughter, as she started to go up her ramp, she tripped over the ledge, fell sideways, striking face on pavement, injuring upper front teeth, upper lip, lower lip, both
palms, and nose. Has had Tdap within past 5 years. Not anticoagulated, No LOC. Daughter witness, got her sitting up. Pt with dementia and is poor historian.
Patient is alert, NAD, demented and poor historian
She does wince with palpation of the right paracervical muscles, no other indication of pain with palpation of her spine or extremities. Moving all extremities well. No indication for imaging of her extremities. Daughter agrees
1:00 p.m.m
CBC unremarkable.
CMP unremarkable
Head CT, Facial bone CT: radiology report read: nothing acute other than STS nasal area
C spine CT radiology report read: IMPRESSION:
1. 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
2. Severe left-sided facet joint arthrosis at C2/C3.
3. Severe right-sided facet joint arthrosis at C3/C4, C4/C5, and C5/C6.
4. Mild multilevel spinal cord compression and central canal stenosis (greatest at C5/C6.
5. Moderate to severe multilevel bilateral neural foraminal narrowing.
Elderly female after fall with mild upper incisors displaced backwards, not loose, contusion upper gum above those teeth, wound inner upper lip small enough, should heal well by secondary intention, no sutures indicated.
Lower lip deep clean abrasion, no laceration needed closure.
Other than being sore and stiff, no other significant injury
Pt ambulated to and back well.
Stable for discharge to care of daughter with whom she lives.
Return instructions reviewed.
*Pulse Oximetry
SaO2: 97
Oxygen Mode of Delivery: Room air
Patient hypoxic: no
*Critical Care Note
Total Time (30-74mins, 75-104mins- exclusive of procedures): Not Applicable
ED Attending Note
-
Portions of this chart may have been created with voice recognition software.� Occasional wrong word or��sound alike� substitutions may have occurred due to the inherent limitations of voice recognition software.
Discharge Plan
Departure
Patient Disposition: Home (Routine Discharge)
Date of Disposition: 04/19/25
Time of Disposition: 13:52
Patient with high blood pressure during this ER visit?: No
Condition: Good
Discharge Problem:
Fall from slip, trip, or stumble, Contusion of nose, Abrasion of both knees, abrasion both hands, facial abrasions
Instructions: Head Injury in Adults (DC), Skin Abrasions (DC), Mouth and dental injuries in adults, Wound Inside The Mouth
Prescriptions:
No Action
methylphenidate HCl 18 mg Tablet Extended Release 24hr
18 mg PO DAILY
bupropion HCl [Wellbutrin XL] 300 mg Tablet Extended Release 24 Hr
300 mg PO DAILY
hydrochlorothiazide 12.5 mg Tablet
12.5 mg PO DAILY
rivastigmine 9.5 mg/24 hour Patch 24 Hour
9.5 mg TRANSDERMAL DAILY
tafluprost (PF) 0.0015 % Dropperette
1 drp BOTH EYES DAILY
Referrals:
Your Dentist [Other] - Call in 1-3 days for appt
Shobha Reyna MD [Family Provider, Family Practice] - As needed
Activity Restrictions/Additional Instructions:
As we discussed, Tylenol 1000 mg up to 3 times a day as needed for pain.
Cleanse all abrasions daily with soap and water, dry well, apply antibiotic ointment and bandaids
Return here immediately for vomiting, change in mental state, not acting at her baseline or anything that concerns you.
Call and make appointment with your dentist
Seek medical care immediately for signs of infected wounds which may include increasing pain, swelling, redness, pus drainage or fever.
Discharge Date and Time
Print Language: ARMENIAN
== END | disposition home or self-care (01) ==
LOC: EMR 10:42
PROVIDERS: Registered Nurse; EMERGENCY PHYSICIAN Emergency Medicine; FAMILY PHYSICIAN Family Medicine
DX: S00.33XA Contusion of nose, initial encounter (principal); S00.511A Abrasion of lip, initial encounter; S00.81XA Abrasion of other part of head, initial encounter; S80.211A Abrasion, right knee, initial encounter; S80.212A Abrasion, left knee, initial encounter; W01.0XXA Fall on same level from slipping, tripping and stumbling without subsequent striking against object, initial encounter; G47.30 Sleep apnea, unspecified; G31.83 Neurocognitive disorder with Lewy bodies; F02.80 Dementia in other diseases classified elsewhere, unspecified severity, without behavioral disturbance, psychotic disturbance, mood disturbance, and anxiety; E03.9 Hypothyroidism, unspecified
CPT/HCPCS: 99284; 70450; 70486; 72125; 80053; 85025